=== PATIENT | female | born 1990 ===

== ENCOUNTER 2024-12-19 06:20 | Day surgery (SDC) | payer BC, SELFPAY ==
[2024-12-19] VITALS (10 sets, daily range): BP systolic 86–111; BP diastolic 56–70; BMI 19.6
[2024-12-19] MEDS: NORMOSOL-R/PLASMALYTE-A 1000 IV (07:40)
== END 2024-12-19 11:20 | disposition home or self-care (01) ==
LOC: SDS 06:20
PROVIDERS: ATTENDING PHYSICIAN Otolaryngology
DX: J34.2 Deviated nasal septum (principal); J34.3 Hypertrophy of nasal turbinates
CPT/HCPCS: 30802; 30520